=== PATIENT | female | born 1945 | race Caucasian/White ===

== ENCOUNTER 2017-04-10 23:05 | Emergency (ER) | payer MEDICARE, OTHER ==
[~2017-04-10] VITALS: Ht 157.5 cm; Wt 92.3 kg
[2017-04-11] MEDS ORDERED: CARV12 PO (00:19)
[2017-04-11] MEDS ORDERED: PRAV20TA4 PO (00:19)
[2017-04-11] MEDS ORDERED: SENN-175 PO (00:19)
[2017-04-11] MEDS ORDERED: ACET-2247 PO (00:19)
[2017-04-11] MEDS ORDERED: LOSA50TA37 PO (00:19)
[2017-04-11] MEDS ORDERED: TRAZ-144 PO (00:19)
[2017-04-11] MEDS ORDERED: DIVA500T35 PO (00:19)
[2017-04-11] MEDS ORDERED: BISA5TAB12 PO (00:19)
[2017-04-11] MEDS ORDERED: QUET100T PO (00:19)
[2017-04-11] MEDS ORDERED: HYDR-4069 PO (00:19)
[2017-04-11] MEDS ORDERED: FLUO-191 PO (00:19)
[2017-04-11] MEDS ORDERED: LEVO125 PO (00:19)
[2017-04-11] MEDS ORDERED: BENZ12LI PO (00:19)
[2017-04-11] MEDS ORDERED: FENO48TA15 PO (00:19)
[2017-04-11] MEDS ORDERED: RISP.5 PO (00:19)
[2017-04-11] MEDS ORDERED: LACT10SO8 PO (00:19)
[2017-04-11 00:47] LABS: BASOPHILS % (AUTO) 0.6 % (0.0-2.0); EOSINOPHILS % (AUTO) 2.7 % (1.0-6.0); HEMATOCRIT 34.3 % (36-46); LYMPHOCYTES # (AUTO) 2.2 K/uL (1.0-4.8); LYMPHOCYTES % (AUTO) 25.6 % (22.0-44.0); MEAN CORPUSCULAR HEMOGLOBIN 33.5 pg (26.0-34.0); MEAN CORPUSCULAR HGB CONC 34.9 G/dL (31.0-37.0); MEAN CORPUSCULAR VOLUME 96 fL (80-100); MONOCYTES # (AUTO) 0.7 K/uL (0.1-1.0); NEUTROPHILS # (AUTO) 5.3 K/uL (1.8-7.7); NEUTROPHILS % (AUTO) 63.1 % (40.0-70.0); PLATELET COUNT (AUTO) 198 K/uL (150-450); RED BLOOD CELL COUNT(AUTO) 3.57 MIL/uL (4.00-5.20); RED CELL DISTRIBUTION WIDTH 12.4 % (11.5-14.5)
[2017-04-11 00:55] LABS: ANION GAP 7 mmol/L (8-16); CALCIUM, TOTAL 9.8 mg/dL (8.8-10.5); CARBON DIOXIDE 28 mmol/L (22-29); CHLORIDE 104 mmol/L (98-107); GLOMERULAR FILTR. RATE CALC 49 mL/min (>60); GLUCOSE,RANDOM 166 mg/dL (70-110); POTASSIUM 3.3 mmol/L (3.5-5.1); SODIUM SERUM 139 mmol/L (136-145); UREA NITROGEN, BLOOD 21 mg/dL (7-18)
[2017-04-11 01:01] LABS: ALANINE AMINOTRANSFERASE 16 U/L (12-78); ALBUMIN 2.9 g/dL (3.4-5.0); ALKALINE PHOSPHATASE 58 U/L (46-116); ASPARTATE AMINOTRANSFERASE 15 U/L (15-37); BILIRUBIN,TOTAL 0.2 mg/dL (0.1-1.0); TOTAL PROTEIN, SERUM 6.1 g/dL (6.4-8.2)
[2017-04-11 06:03] VITALS: BP 127/78
== END 2017-04-11 07:29 | disposition home or self-care (01) ==
LOC: EMS 23:06
DX: F25.9 Schizoaffective disorder, unspecified (principal); I10 Essential (primary) hypertension; E03.9 Hypothyroidism, unspecified; Z88.2 Allergy status to sulfonamides; Z88.8 Allergy status to other drugs, medicaments and biological substances; Z79.899 Other long term (current) drug therapy
CPT/HCPCS: 36415; 80053; 85025; 99284; G0480